=== PATIENT | female | born 1950 | race American Indian/Alaskan Native ===

== ENCOUNTER 2017-04-04 13:52 | Outpatient (CLI) | payer MEDICARE ==
--- NOTE | 2017-04-05 08:19 | XRay Report ---
METASTATIC SURVEY:12/05/16 CLINICAL: Monoclonal gammopathy. Hypercalcemia. FINDINGS: Lateral skull: Negative Cervical spine: Negative degenerative change. Thoracic spine: Negative. Degenerative change. Lumbar spine: Negative. Degenerative change. Chest and ribs: Negative Bilateral humerus: Negative Pelvis and hips: Negative Bilateral femur: Negative IMPRESSION: Negative
== END 2017-04-04 13:53 | disposition home or self-care (01) ==
LOC: XRAY 13:52
PROVIDERS: ATTEND Internal Medicine Hematology
DX: D47.2 Monoclonal gammopathy (principal); E83.52 Hypercalcemia; I10 Essential (primary) hypertension
CPT/HCPCS: 77074

== ENCOUNTER 2018-03-15 16:00 | Outpatient (CLI) | payer MEDICARE | END 2018-03-15 16:01 | disposition home or self-care (01) | LOC: VAS 16:00 | PROVIDERS: ATTEND Family Medicine | DX: M79.661 Pain in right lower leg (principal); M79.89 Other specified soft tissue disorders; K21.9 Gastro-esophageal reflux disease without esophagitis; M19.90 Unspecified osteoarthritis, unspecified site; I10 Essential (primary) hypertension ==